=== PATIENT | male | born 1970 | race American Indian/Alaskan Native ===

== ENCOUNTER 2023-11-25 09:12 | Day surgery (SDC) | payer MEDICAID ==
[2023-11-18 11:45] LABS: BASOPHILS % (AUTO) 0.4 % (0-1); EOSINOPHILS # (AUTO) 0.2 X10'3 (0-0.9); EOSINOPHILS % (AUTO) 3.8 % (0-6); LYMPHOCYTES # (AUTO) 2.2 X10'3 (1.1-4.8); LYMPHOCYTES % (AUTO) 34.6 % (21-51); MEAN CORPUSCULAR HEMOGLOBIN 32.5 PG (27.0-31.0); MEAN CORPUSCULAR VOLUME 95.5 FL (78-98); MEAN PLATELET VOLUME 7.6 FL (7.4-10.4); MONOCYTES # (AUTO) 0.5 X10'3 (0-0.9); MONOCYTES % (AUTO) 8.2 % (2-12); NEUTROPHILS # (AUTO) 3.3 X10'3 (1.8-7.7); PRE OP PLATELET COUNT 282 X10'3 (140-440); PRE OP WHITE BLOOD COUNT 6.3 10'3 (4.8-10.8); RED BLOOD COUNT 4.93 X10'6 (4.70-6.10); RED CELL DISTRIBUTION WIDTH 12.5 % (11.5-14.5)
[2023-11-18 12:01] LABS: ALBUMIN 3.9 G/DL (3.4-5.0); ALKALINE PHOSPHATASE 90 IU/L (46-116); BLOOD UREA NITROGEN 13 MG/DL (7-18); BUN/CREATININE RATIO 15.9 (10.0-20.0); CALCIUM 8.7 MG/DL (8.5-10.1); CHLORIDE 104 MMOL/L (99-107); CREATININE 0.82 MG/DL (0.60-1.10); PRE OP ALT 25 U/L (30-65); PRE OP AST 22 U/L (10-37); PRE OP BILIRUB, TOTAL 0.5 MG/DL (0.0-1.0); PRE OP GLUCOSE 103 MG/DL (70-104); PRE OP POTASSIUM 4.2 MMOL/L (3.4-5.1); PRE OP SODIUM 140 MMOL/L (135-145); TOTAL PROTEIN 7.8 G/DL (6.4-8.2); eGFR > 90 ML/MIN
[2023-11-18 12:10] LABS: PRE OP ANION GAP 7 (8-16); TOTAL CARBON DIOXIDE 29.2 MMOL/L (24-32)
[2023-11-25] VITALS (10 sets, daily range): BP systolic 103–130; BP diastolic 51–76; PULSE 57–86; RESP 12–24; TEMP 97.7; O2SAT 93–99
[~2023-11-25] VITALS: Ht 175.3 cm; Wt 84.0 kg
[2023-11-25] MEDS: ringers solution, lacted 1,000 ML IV SCH (05:30)
[2023-11-25] MEDS: cefazolin 2gm/D5W 100mL 100 ML IV ONE (05:30)
[2023-11-25] MEDS: famotidine 20mg tablet PO ONE (05:30)
[~2023-11-25 09:12] MED LIST: IBUP-1986 PO; enalaprilat dihydrate 2.5mg/2ml vial IV PRN; labetalol 20mg/4ml (5mg/ml) syringe IV PRN; meperidine/PF 25mg/ml syringe IV PRN; morphine 2 MG/ML inj. syringe IV PRN; ondansetron/PF 4mg/2ml inj IV PRN; proCHLORperazine 10 MG/2 ml inj IV PRN; ringers solution, lacted 1,000 ML IV SCH
[2023-11-25] MEDS ORDERED: tamsulosin 0.4mg capsule PO SCH (09:55)
[2023-11-25] MEDS: tamsulosin 0.4mg capsule PO SCH (10:24)
[2023-11-25] MEDS ORDERED: fentaNYL/PF 50MCG/1 ML 2ML syringe ONE (11:36)
[2023-11-25] MEDS ORDERED: LIDOcaine 1%/PF 5ML 10 MG/ML VIAL ONE (11:37)
[2023-11-25] MEDS ORDERED: midazolam 1 mg/ML 2ml injection ONE (11:37)
[2023-11-25] MEDS ORDERED: propofol inj 20 ML IV ONE (11:37)
[2023-11-25] MEDS ORDERED: sevoflurane 250ml liquid IH ONE (12:00)
[2023-11-25] MEDS ORDERED: glycopyrrolate 0.2mg/ml inj ONE (12:00)
[2023-11-25] MEDS ORDERED: neostigmine methylsulfate 1 MG/ML 10ml vial ONE (12:00)
[2023-11-25] MEDS ORDERED: LIDOcaine 1% 30ml preserv. free vial ONE (12:05)
[2023-11-25] MEDS ORDERED: INDOCYANINE GREEN 25 MG/10 ML VIAL IV ONE (12:06)
[2023-11-25] MEDS ORDERED: rocuronium 10mg/ml inj IV ONE (12:15)
[2023-11-25] MEDS: BUPIVAcaine 2.5mg/ml inj 50ml vial (contains preservative) ONE (12:37)
[2023-11-25] MEDS ORDERED: ondansetron/PF 4mg/2ml inj ONE (12:39)
[2023-11-25] MEDS ORDERED: meperidine/PF 25mg/ml syringe ONE (12:39)
[2023-11-25] MEDS ORDERED: dexamethasone sod phosphate 4mg/ml inj. ONE (12:39)
[2023-11-25] MEDS: meperidine/PF 25mg/ml syringe IV PRN (14:13)
[2023-11-25] MEDS: HYDROcodone/acetaminophen 5mg/325mg tablet PO PRN (14:14)
[2023-11-25] MEDS: morphine 4 MG/ML inj SYRINge IV PRN (14:24)
== END 2023-11-25 17:22 | disposition home or self-care (01) ==
LOC: PAS 09:12
PROVIDERS: ATTEND Surgery
DX: K40.90 Unilateral inguinal hernia, without obstruction or gangrene, not specified as recurrent (principal); K42.9 Umbilical hernia without obstruction or gangrene; F12.90 Cannabis use, unspecified, uncomplicated; Z90.49 Acquired absence of other specified parts of digestive tract; Z85.038 Personal history of other malignant neoplasm of large intestine; Z86.19 Personal history of other infectious and parasitic diseases; Z79.899 Other long term (current) drug therapy; Z80.1 Family history of malignant neoplasm of trachea, bronchus and lung; Z82.61 Family history of arthritis
CPT/HCPCS: 36415; 49591; 49650; 80053; 82948; 85025; 93005; C1781; J0690; J1100; J2175; J2250; J2270; J2405; J2704; J2710; J3010; J3490; J7030; J7120; S2900; Z7506; Z7508; Z7512; A4215; A4618